=== PATIENT | female | born 2005 | race Two or more races ===

== ENCOUNTER 2024-12-20 21:41 | Emergency (ER) | payer OTHER, SELFPAY ==
[2024-12-20 22:12] VITALS: BP 122/72; PULSE 92; TEMP 37.1; O2SAT 98; BMI 24.7
--- NOTE | 2024-12-20 23:43 | PC.NURSE ---
this patient complains of dizziness onset 1 day ago while in the shower, this patient denies any recent falls, injury or trauma to cause this dizziness
--- NOTE | 2024-12-21 00:16 | ED_ITS ---
HPI - Dizziness General Chief Complaint: Dizziness Stated Complaint: DIZZINESS [facility] wants ER to see first Time Seen by Provider: 12/21/24 00:08 Source: patient Mode of arrival: walk-in Limitations: no limitations History of Present Illness HPI Narrative: 32 weeks . Has felt dizzy on and off since last PM. Feels off balance. No headache or ear pain. States baby is doing well Related Data Allergies Allergy/AdvReac Type Severity Reaction Status Date / Time No Known Drug Allergies Allergy Verified 12/21/24 00:39 Review of Systems ROS Status of ROS 10 or more systems reviewed and unremark able except as noted in history and below PFSH PFSH Social History Little interest or pleasure in doing things: not at all Feeling down, depressed, or hopeless: not at all Exam Constitutional Vital Signs, click to edit/add: Last Vital Signs Temp 98.7 F 12/20/24 22:12 Pulse 92 H 12/20/24 22:12 Resp 16 12/20/24 22:12 BP 122/72 12/20/24 22:12 Pulse Ox 98 12/20/24 22:12 O2 Del Method Room Air 12/20/24 22:12 Common normals: no apparent distress, average body habitus, oriented x3, no limitations, healthy appearing, alert and well nourished HENMT Common normals: normocephalic and head/scalp atraumatic Other: right TM with mild fluid bulge Eye Common normals: PERRL and EOMs intact bilaterally Respiratory Common normals: normal respiratory effort, no retractions, no use of accessory muscles and clear to auscultation bilaterally Cardio Common normals: regular rate, regular rhythm, S1 normal heart sound and S2 normal heart sound GI Other: gravid Extremity Common normals: normal to inspection and full ROM Neuro Common normals: oriented x3, CN's II-XII intact bilaterally, moves all extremities and no focal motor deficits Psych Appearance: grossly normal Course Vital Signs Vital signs: Vital Signs Temperature 98.7 F 12/20/24 22:12 Pulse Rate 92 H 12/20/24 22:12 Respiratory Rate 16 12/20/24 22:12 Blood Pressure 122/72 12/20/24 22:12 Pulse Oximetry 98 12/20/24 22:12 Oxygen Delivery Method Room Air 12/20/24 22:12 Temperature 98.7 F 12/20/24 22:12 Pulse Rate 92 H 12/20/24 22:12 Respiratory Rate 16 12/20/24 22:12 Blood Pressure 122/72 12/20/24 22:12 Pulse Oximetry 98 12/20/24 22:12 Oxygen Delivery Method Room Air 12/20/24 22:12 MDM - Dizziness MDM Narrative Medical decision making narrative: patient is and presents with vertiginous symptoms. Feels off balance. Demonstrates how she can move her head and trigger symptoms. Exam with right middle ear effusion. TM is clear. Patient has otitis serous. Given dose of solumedrol and labs checked. CBC with mild anemia and BMP WNL. UA with possible UTI. Patient advised of this result. Urine sent for cx and keflex ordered. Lab Data Labs: Lab Results 12/20/24 12/21/24 Range/Units 23:10 00:30 WBC 9.2 (4.0-11.0) 10^3/uL RBC 4.00 L (4.20-5.40) 10^6/uL Hgb 9.2 L (12.0-16.0) g/dL Hct 28.9 L (36.0-48.0) % MCV 72.3 L (81.0-99.0) fL MCH 23.0 L (26.7-34.0) pg MCHC 31.8 (29.9-35.2) g/dL RDW 13.6 (11.0-15.0) % Plt Count 234 (150-450) 10^3/uL MPV 10.8 (9.5-13.5) fL Neut % (Auto) 66.0 (43.0-75.0) % Lymph % (Auto) 23.5 (20.5-60.0) % [place] % (Auto) 9.1 (1.7-12.0) % Eos % (Auto) 0.9 (0.9-7.0) % Baso % (Auto) 0.2 (0.2-2.0) % Neut # (Auto) 6.1 (1.4-6.5) 10^3/uL Lymph # (Auto) 2.2 (1.2-3.8) 10^3/uL [place] # (Auto) 0.8 (0.3-0.8) 10^3/uL Eos # (Auto) 0.1 (0.0-0.7) 10^3/uL Baso # (Auto) 0.0 (0.0-0.1) 10^3/uL Abs Immat Gran (auto) 0.03 (0.00-0.03) 10^3/uL Imm/Tot Granulo (auto) 0.3 (0.0-0.5) % Sodium 140 (136-145) mmol/L Potassium 3.5 (3.5-5.1) mmol/L Chloride 106 (98-107) mmol/L Carbon Dioxide 22.4 (21.0-32.0) mmol/L Anion Gap 15.1 BUN 3.0 L (7.0-18.0) mg/dL Creatinine 0.35 L (0.55-1.02) mg/dL Est GFR ( Amer) >60 (>=60 mL/min/1.73m^2) Est GFR (Non-Af Amer) >60 (>=60 mL/min/1.73m^2) BUN/Creatinine Ratio 8.6 Glucose 101 (74-106) mg/dL Calcium 8.8 (8.5-10.1) mg/dL Urine Color Lt yellow (YELLOW) Urine Clarity Clear (CLEAR) Urine pH 7.0 (5.0-9.0) Ur Specific [place] <=1.005 A (1.005-1.025) Urine Protein Negative (NEG/TRACE) mg/dL Urine Glucose (UA) Negative (NEGATIVE) mg/dL Urine Ketones Negative (NEGATIVE) mg/dL Urine Occult Blood Negative (NEGATIVE) Urine Nitrite Negative (NEGATIVE) Urine Bilirubin Negative (NEGATIVE) Urine Urobilinogen 0.2 (0.2-1.0) EU/dL Ur Leukocyte Esterase Negative (NEGATIVE) Urine RBC None seen (0-2) #/HPF Urine WBC 2-5 A (NONE SEEN) #/HPF Ur Squamous Epith Cells Few A (NONE/RARE) #/LPF Urine Crystals None seen (None Seen) #/HPF Urine Bacteria Moderate A (NONE SEEN) #/HPF Urine Casts None seen (NONE SEEN) #/LPF Urine Mucus None seen (NONE SEEN) Ur Culture Indicated? Yes-[facility] [place] Discharge Plan Discharge Chief Complaint: Dizziness Clinical Impression: Benign paroxysmal positional vertigo, UTI (urinary tract infection) Patient Disposition: Home, Self-Care Print Language: Cong[place]ese Instructions: Benign Paroxysmal Positional Vertigo (ED), Urinary Tract Infection in (ED) Additional Instructions: drink plenty of fluids. Take claritin 10mg daily and follow up with your doctor in next 2-3 days for recheck Referrals: JOY LOPEZ, FRONT END MANAGER [Primary Care Provider] - 1 week
[2024-12-21 00:31] LABS: Glucose Urine UA NEGATIVE (NEGATIVE)
[2024-12-21 00:40] LABS: Hematocrit 28.9 % (36.0-48.0); Hemoglobin 9.2 g/dL (12.0-16.0); Immature Granulocytes Abs Auto 0.03 10^3/uL (0.00-0.03); Immature Granulocytes Pct Auto 0.3 % (0.0-0.5); Lymphocytes Absolute Auto 2.2 10^3/uL (1.2-3.8); Mean Corpuscular HGB Conc 31.8 g/dL (29.9-35.2); Mean Corpuscular Hemoglobin 23.0 pg (26.7-34.0); Mean Corpuscular Volume 72.3 fL (81.0-99.0); Platelet Count 234 10^3/uL (150-450); Red Blood Count 4.00 10^6/uL (4.20-5.40); White Blood Count 9.2 10^3/uL (4.0-11.0)
[2024-12-21 00:41] LABS: Cast Seen? NONE SEEN #/LPF (NONE SEEN); Crystals Seen? None Seen #/HPF (None Seen); Urine Culture Indicated YES-FRMC
[2024-12-21] MEDS: 0.9 % SODIUM CHLORIDE 1,000 ML 999 ML IV (00:44)
[2024-12-21] MEDS: METHYLPREDNISOLONE SOD SUCC PF 125 MG/2 ML VIAL IVP (00:44)
[2024-12-21 00:51] LABS: Anion Gap 15.1; Blood Urea Nitrogen 3.0 mg/dL (7.0-18.0); Calcium 8.8 mg/dL (8.5-10.1); Carbon Dioxide 22.4 mmol/L (21.0-32.0); Chloride 106 mmol/L (98-107); Estimated GFR (African America >60 (>=60 mL/min/1.73m^2); Estimated GFR (Non-African Ame >60 (>=60 mL/min/1.73m^2); Glucose 101 mg/dL (74-106); Potassium 3.5 mmol/L (3.5-5.1); Sodium 140 mmol/L (136-145)
[2024-12-21] MEDS: CEPHALEXIN 500 MG CAPSULE PO (02:04)
== END 2024-12-21 02:14 | disposition home or self-care (01) ==
PROVIDERS: Emergency Provider Internal Medicine; PCP Nurse Practitioner
DX: O23.43 Unspecified infection of urinary tract in pregnancy, third trimester (principal); N39.0 Urinary tract infection, site not specified; Z3A.32 32 weeks gestation of pregnancy; O99.891 Other specified diseases and conditions complicating pregnancy; H81.11 Benign paroxysmal vertigo, right ear
CPT/HCPCS: 36415; 80048; 81001; 85025; 87086; 96361; 96374; 99284; J2919